=== PATIENT | female | born 1940 | race Caucasian/White ===

== ENCOUNTER 2016-12-06 05:42 | Emergency (ER) | payer MEDICARE ==
[2016-05-27 14:42] VITALS: BMI 29.3
[~2016-12-06 05:42] MED LIST: AMBIEN5 MG PO; CARAFATE1 G PO; CIPRO250 MG PO; DILAUDID2 MG PO; ELECTROLYTE MISC; FERROUS SULFAT325 MG PO; FUROSEMIDE10 MG/M1 IV; GABAPENTIN100 MG PO; GLIPIZIDE10 MG PO; GLUCOPHAGE500 MG PO; HUMALOG 30100 UNITS/ SC; HUMULIN R100 U/ML SC; HYDROCHLOROTHIA25 MG GT; HYDROCODONE-APA1 TAB PO; IPRAT-ALBUT 0.5-3 ML UPD; KLOR-CON M2020 MEQ PO; LANTUS SOL100 UNIT/1; LEVAQUIN 5500 MG/100 IV; LEVEMIR100 U/M1 SC; LEVSIN/ANASP0.125 MG PO; LEXAPRO20 MG PO; LISINOPRIL5 MG PO; LOVENOX40 MG/0.4 SC; MACROBID100 MG PO; METOPROLOL TART50 MG PO; MIRALAX17 GM PO; MUCINEX D1 TAB.SR . PO; MUCINEX600 MG PO; NORCO 7.5/325 T1 TA1 PO; NOVOLOG100 U/M1; PHENERGAN25 M1 PO; PLAVIX75 MG PO; PRILOSEC10 MG PO; PROAIR HFA8.5 GM INH; PROBENECID500 MG PO; SEROQUEL300 MG PO; SINEMET 25-1001 EACH PO; SYNTHROID50 MCG PO; TOPAMAX50 MG PO; TYLENOL W/CODEI1 TAB PO; VALIUM 2 MG TAB2 MG PO; VALIUM10 MG; VALIUM10 MG PO; ZANAFLEX2 M1 PO; ZOFRAN4 MG PO; ZOLOFT50 MG PO; ZOSYN 3.3753.375 G1 IV
[2016-12-06 06:47] LABS: BASOPHILS 0.1 % (0-2); EOSINOPHILS 2.3 % (0-7); HEMATOCRIT 40.9 % (36.0-48.0); HEMOGLOBIN 13.1 g/dL (12-16); IMMATURE GRANULOCYTES 0.1 % (0-5); LYMPHOCYTES 39.9 % (15-50); MCV 90.5 fL (80.0-100.0); MEAN PLATELET VOLUME 10.5 fL (7.4-10.4); MONOCYTES 7.3 % (2-11); NEUTROPHILS 50.3 % (40-80); RBC 4.52 10x6/uL (4.00-5.40); RDW 15.3 % (11.5-14.5)
[2016-12-06 06:54] LABS: PLATELET COUNT 140 10x3/uL (130-400)
[2016-12-06 06:56] LABS: APPEARANCE CLOUDY (CLEAR); BILIRUBIN NEGATIVE (NEGATIVE); COLOR YELLOW (YELLOW); GLUCOSE NEGATIVE (NEGATIVE); KETONE NEGATIVE (NEGATIVE); LEUKOCYTE ESTERASE 1+ (NEGATIVE); NITRITE POSITIVE (NEGATIVE); PROTEIN TRACE mg/dL (NEGATIVE); UROBILINOGEN NORMAL (NORMAL)
[2016-12-06 06:58] LABS: BACTERIA MANY /hpf (NONE SEEN); MUCUS >1+ /lpf (NONE SEEN); RED CELLS - URINE 0-5 /hpf (0-5); WHITE CELLS - URINE >50 /hpf (0-5)
[2016-12-06 07:38] LABS: ALBUMIN 3.1 g/dL (3.4-5.0); ALKALINE PHOSPHATASE 79 U/L (46-116); ALT (SGPT) 13 U/L (10-68); CALC OSMOLALITY 286 mosm/kg (275-300); CALCIUM 8.4 mg/dL (8.5-10.1); CARBON DIOXIDE 24.1 mmol/L (21.0-32.0); CHLORIDE - SERUM 110 mmol/L (98-107); CREATININE - SERUM 0.8 mg/dL (0.6-1.3); GLUCOSE 113 mg/dL (74-106); POTASSIUM - SERUM 3.6 mmol/L (3.5-5.1); PROTEIN - SERUM 6.6 g/dL (6.4-8.2); SODIUM 143 mmol/L (136-145); UREA NITROGEN 15 mg/dL (7-18); eGFR NON AFRICAN AMERICAN 74 mL/min (90-120)
[2016-12-06 07:45] LABS: CREATINE KINASE 23 UL (21-215); MAGNESIUM - SERUM 1.9 mg/dL (1.8-2.4); PRO BNP 68 pg/mL (0-450); TROPONIN-I < 0.017 ng/mL (0.000-0.060)
== END 2016-12-06 09:50 | disposition home or self-care (01) ==
LOC: D.ER 05:42
PROVIDERS: Emergency Medicine
DX: R55 Syncope and collapse (principal); N39.0 Urinary tract infection, site not specified; E11.9 Type 2 diabetes mellitus without complications

== ENCOUNTER 2017-01-06 09:54 | Inpatient (IN) | payer MEDICARE ==
[~2017-01-06] VITALS: Ht 167.6 cm; Wt 74.8 kg
[2017-01-06 13:32] LABS: BASOPHILS 0.1 % (0-2); EOSINOPHILS 1.2 % (0-7); HEMATOCRIT 42.6 % (36.0-48.0); HEMOGLOBIN 13.8 g/dL (12-16); IMMATURE GRANULOCYTES 0.1 % (0-5); LYMPHOCYTES 36.8 % (15-50); MCH 29.6 pg (26.0-34.0); MCHC 32.4 g/dL (31.0-37.0); MCV 91.2 fL (80.0-100.0); MEAN PLATELET VOLUME 10.5 fL (7.4-10.4); MONOCYTES 8.1 % (2-11); NEUTROPHILS 53.7 % (40-80); PLATELET COUNT 128 10x3/uL (130-400); RBC 4.67 10x6/uL (4.00-5.40); RDW 15.1 % (11.5-14.5); WBC 7.3 10x3/uL (4.8-10.8)
[2017-01-06 13:43] LABS: APPEARANCE CLOUDY (CLEAR); COLOR YELLOW (YELLOW)
[2017-01-06 13:44] LABS: BILIRUBIN NEGATIVE (NEGATIVE); GLUCOSE NEGATIVE (NEGATIVE); KETONE NEGATIVE (NEGATIVE); LEUKOCYTE ESTERASE 2+ (NEGATIVE); NITRITE POSITIVE (NEGATIVE); PROTEIN TRACE mg/dL (NEGATIVE); UROBILINOGEN NORMAL (NORMAL)
[2017-01-06 13:46] LABS: INR 1.08 (0.85-1.17); PROTIME 13.9 SECONDS (11.6-15.0)
[2017-01-06 13:46] LABS: WHITE CELLS - URINE >50 /hpf (0-5)
[2017-01-06 13:47] LABS: EPITHELIAL CELLS 0-5 /hpf (0-5); RED CELLS - URINE RARE /hpf (0-5)
[2017-01-06 13:48] LABS: BACTERIA MANY /hpf (NONE SEEN)
[2017-01-06 14:02] LABS: ALBUMIN 3.2 g/dL (3.4-5.0); ALKALINE PHOSPHATASE 71 U/L (46-116); ALT (SGPT) 15 U/L (10-68); BILIRUBIN - TOTAL 0.27 mg/dL (0.2-1.3); CALC OSMOLALITY 291 mosm/kg (275-300); CALCIUM 8.8 mg/dL (8.5-10.1); CARBON DIOXIDE 26.1 mmol/L (21.0-32.0); CHLORIDE - SERUM 113 mmol/L (98-107); GLUCOSE 105 mg/dL (74-106); POTASSIUM - SERUM 4.5 mmol/L (3.5-5.1); PROTEIN - SERUM 6.9 g/dL (6.4-8.2); SODIUM 147 mmol/L (136-145); UREA NITROGEN 13 mg/dL (7-18); eGFR NON AFRICAN AMERICAN 57 mL/min (90-120)
[2017-01-06 14:08] LABS: MAGNESIUM - SERUM 2.2 mg/dL (1.8-2.4); PRO BNP 185 pg/mL (0-450)
[2017-01-06 14:10] LABS: TROPONIN-I < 0.017 ng/mL (0.000-0.060)
[2017-01-06 18:16] VITALS: BP 129/60; BMI 26.7
[2017-01-06 20:00] VITALS: BP 164/85
--- NOTE | 2017-01-06 20:00 | NUR ---
ASSESSMENT PER FLOW SHEET. IV PATENT LEFT AC OF NS AT 100CC'S/HR SITE CLEAR. TELM. SHOWS SR WITH HR 82. BED ALARM BED ACTIVATED. SR UP X2 CALL LIGHT WITHIN REACH. DOOR OPEN. YELLOW BAND ON PATIENT AND YELLOW LABEL ON DOOR. SCD'S ON BLUE SOCKS ON.
--- NOTE | 2017-01-06 21:30 | NUR ---
MEDS GIVEN PER AUG. HOB UP 30 DEGREES. CALL LIGHT WITHIN REACH.
--- NOTE | 2017-01-06 22:00 | NUR ---
VOIDED ON BEDPAN. BRIEF PUT BACK ON.
[2017-01-07] VITALS: BP 176/78
--- NOTE | 2017-01-07 | NUR ---
MEDS GIVEN PER MAR. PT PULLS OFF BLUE SOCKS AND TAKES OFF SCD'S STATES THEY ARE TOO HOT.
--- NOTE | 2017-01-07 01:00 | NUR ---
EYES CLOSED RESPIRATIONS WITH EASE AND UNLABORED.
--- NOTE | 2017-01-07 03:03 | NUR ---
AWAKE PLACED ON BEDPAN VOIDS WELL. CALL LIGHT WITHIN REACH.
[2017-01-07 04:00] VITALS: BP 144/65
--- NOTE | 2017-01-07 04:24 | NUR ---
EYES CLOSED RESPIRATIONS WITH EASE AND UNLABORED.
--- NOTE | 2017-01-07 06:41 | NUR ---
AWAKE TALKING ON HER PHONE IN ROOM.
--- NOTE | 2017-01-07 07:35 | NUR ---
PATIENT IS AWAKE AND ALERT, SHE STATES THAT SHE HAS BEEN CRYING ALL NIGHT DUE TO THE PAIN IN HER LEGS AND BACK. SHE SAYS THAT HER DOCTOR HAD JUST BEEN IN AND ORDERED HER SOME PAIN MEDICATION. NORCO AND ATIVAN GIVEN. AT THE BEDSIDE. REVIEWED HER MEDICATION LIST. UPDATED THE BEST WE COULD FROM HIS MEMORY. HE STATED THAT SHE NO LONGER TAKES CARAFATE. ADDED SOME MEDICATIONS. HE IS GOING TO BRING HER MEDICATIONS UP LATER TODAY FOR REVIEW HE DID WHEN SHE CVAME IN TO THE ER.
[2017-01-07] MEDS ORDERED: HYDROCODONE-APA1 TAB PO (07:42)
[2017-01-07] MEDS ORDERED: AMBIEN10 MG PO (07:44)
[2017-01-07] MEDS ORDERED: PEPCID40 MG PO (07:45)
[2017-01-07] MEDS ORDERED: ZANAFLEX2 M1 PO (07:47)
[2017-01-07] MEDS ORDERED: KLOR-CON 1010 MEQ PO (07:47)
[2017-01-07] MEDS ORDERED: LISINOPRIL2.5 MG PO (07:48)
--- NOTE | 2017-01-07 08:26 | NUR ---
Patient Name: YUDELKA QURESHI Admission Status: ER Accout number: [id number] Admission Date: 01-06-2017 : 1941 Admission Diagnosis: Attending: YOLY Current LOS: 1 Anticipated DC Date: 01-09-2017 Planned Disposition: Home with Home Health Primary Insurance: MEDICARE A & B Discharge Planning Comments: CM MET WITH PATIENT AND FAMILY (SPOUSE-PAMELA), AND (DAUGHTER). SPOUSE STATED HE WOULD DRIVE PATIENT HOME AT DISCHARGE. THERE ARE 3 STEPS W/RAILS TO ENTER HOME AND NO STAIRS INSIDE. PATIENTS SPOUSE HELPS HER WITH BATH, DRESSING, AND MEDS. PATIENT HAS A WALKER, BS COMMODE, HANDICAP SHOWER, CANE, AND OXYGEN PRN AT . PATIENT HAS HELP FROM A NEW COMPANY IN [place] (FAMILY COULD NOT REMEMBER NAME) 3X A WEEK FOR 1 HOUR (FAMILY STATED SHOULD BE 4 HRS A DAY). PATIENTS PCP IS DR. BATES IN [place] AND PHARMACY IS [facility] IN [place]. PATIENT AGREED TO HOME HEALTH AND SPOUSE SIGNED THE [facility] FORM WITH [facility]. CM WILL CONTINUE TO FOLLOW PATIENT WITH D/C NEEDS AND PLANS. PCP DR. BATES ([place]) [facility] ([facility]) [phone] PAMELA (SPOUSE) [phone] OR [phone] Local Area Network Systems Adminstrator: Concha Yanez Is the patient Alert and Oriented? Yes 0 * How many steps to enter\exit or inside your home? 3 /RAILS 0 * PCP DR. BATES IN [place] 0 * Pharmacy [facility] 0 * Preadmission Environment Home with Family 0 * ADLs Partial Dependent 0 * Partial ADLs (Assistance needed) Bathing Dressing Medication Management 0 * Equipment Bedside Commode Cane Oxygen Walker 0 * Other Equipment HANDICAP SHOWER 0 * List name and contact numbers for known caregivers / representatives who currently or will assist patient after discharge: PAMELA (SPOUSE) [phone] 0 * Community resources currently utilized Other 0 * Please name any agencies selected above. SERVICE IN [place] [facility] HELP 3 DAYS A WEEK FOR 1HR DAY (SHOULD BE 4) 0 * Additional services required to return to the preadmission environment? Yes 0 * Can the patient safely return to the preadmission environment? Yes 0 * Has this patient been hospitalized within the prior 30 days at any hospital? No 0 Grand Total: 0
[2017-01-07 09:05] VITALS: BP 182/91
[2017-01-07 11:37] VITALS: BP 161/81
--- NOTE | 2017-01-07 12:31 | NUR ---
PATIENT SITTING UP IN HER BED EATING HER LUNCH. DENIES NEEDS, STATES THAT SHE SLEPT WELL THIS MORNING.
--- NOTE | 2017-01-07 12:45 | NUR ---
NEW ORDERS RECEIVED. PATIENT ABLE TO TALK MORE CLEARLY AND STATES THAT SHE CAN SWALLOW. HER ARMS CONTINUE TO TREMOR. SHE STATES THAT [facility] IS COMING FOR HER WITH HER MOMMA AND SON.
--- NOTE | 2017-01-07 13:00 | NUR ---
PATIENT'S MOVEMENTS HAVE RELAXED AND THE PATIENT IS GAZING AT THE CEILING TALKING ABOUT HOW BEAUTIFUL "IT" IS. SHE STATES MATIAS CHOUDHURY, HER MOTHER AND SON ARE COMING FOR HER. SHE REPEATS "ITS BEAUTIFUL" OVER AND OVER. HER DAUGHTER ARRIVES AND IS ABLE TO ATTRACT THE PATIENT'S ATTENTION. SHE TELLS HER DAUGHTER THAT LACIE IS BEAUTIFUL. THE PATIENT'S GETS HERE AND STATES THAT THE PATIENT WANTS TO , IS TIRED OF LIVING THIS WAY. ASKS IF SHE CAN HAVE A VALIUM OR ATIVAN. INFORMED THAT SHE HAS HAD AN ATIVAN. HE STATES THAT THIS IS WHAT HELPED HER YESTERDAY. I REVIEWED HER CHART AND FOUND THAT SHE WAS GIVEN 1MG ATIVAN IV IN THE ER FOR THESE SYMPTOMS AND WAS ACTUALLY GIVEN SOME VERSED IN THE AMBULANCE FOR "POSSIBLE SEIZURE"
[2017-01-07 13:23] VITALS: Ht 167.6 cm; Wt 74.8 kg
--- NOTE | 2017-01-07 13:35 | NUR ---
UPON RETURNING FROM LUNCH, I ENTERED HER ROOM TO FIND ANOTHER NURSE AND A CAN HOLDING THE PATIENT'S HANDS WHILE SHE IS HAVING TREMORS THAT ARE TONIC AND CLONIC IN NATURE, HER LEGS ARE FULLY EXTENDED AND SHE IS HAVING DIFFICULTY TALKING BUT WAS ABLE TO SAY GEE. SHE IS ABLE TO DIRECT HER GAZE. CALL PLACED TO DR. VICK'S OFFICE.
--- NOTE | 2017-01-07 19:10 | NUR ---
PT LYING IN BED, SMILING, VERY TALKATIVE, VERBALIZED 1 BM TODAY AND WAS DIARRHEA, BED IN LOW POSITION, CALL LIGHT WITH IN REACH NO NEEDS AT THIS TIME
[2017-01-07 20:00] VITALS: BP 140/64
--- NOTE | 2017-01-07 21:00 | NUR ---
PT IS LYING IN BED ON BACK WATCHING NEWS, NO OTHER NEEDS AT THIS TIME, BED IN LOW POSITION, CALL LIGHT WITHIN REACH
[2017-01-08] VITALS: BP 132/61
--- NOTE | 2017-01-08 00:08 | NUR ---
PT IS LYING ON LT SIDE, EVEN RISE AND FALL OF CHEST, NO SIGNS OF DISTRESS, CONTINUE W/ CARE PLAN. CALL LIGHT WITHIN REACH
--- NOTE | 2017-01-08 00:39 | NUR ---
EYES CLOSED RESPIRATIONS WITH EASE AND UNLABORED.
[2017-01-08 04:00] VITALS: BP 142/80
[2017-01-08 05:09] LABS: BASOPHILS 0.1 % (0-2); HEMATOCRIT 42.5 % (36.0-48.0); HEMOGLOBIN 13.9 g/dL (12-16); IMMATURE GRANULOCYTES 0.2 % (0-5); LYMPHOCYTES 42.7 % (15-50); MCH 29.3 pg (26.0-34.0); MCHC 32.7 g/dL (31.0-37.0); MCV 89.7 fL (80.0-100.0); MEAN PLATELET VOLUME 10.6 fL (7.4-10.4); MONOCYTES 7.2 % (2-11); NEUTROPHILS 47.8 % (40-80); PLATELET COUNT 145 10x3/uL (130-400); RBC 4.74 10x6/uL (4.00-5.40); RDW 14.8 % (11.5-14.5); WBC 8.6 10x3/uL (4.8-10.8)
[2017-01-08 05:29] LABS: HEMOGLOBIN A1C 5.8 % (4.8-6.0)
[2017-01-08 05:34] LABS: BILIRUBIN - TOTAL 0.37 mg/dL (0.2-1.3); CALCIUM 8.4 mg/dL (8.5-10.1); CARBON DIOXIDE 24.1 mmol/L (21.0-32.0); MAGNESIUM - SERUM 1.7 mg/dL (1.8-2.4); PHOSPHOROUS 3.4 mg/dL (2.5-4.9); PROTEIN - SERUM 7.1 g/dL (6.4-8.2); T4 THYROXIN - FREE 0.79 ng/dL (0.76-1.46); THYROID STIMULATING HORMONE 2.13 uIU/mL (0.36-3.74)
[2017-01-08 05:37] LABS: ANION GAP 11.4 mmol/L (8-16); POTASSIUM - SERUM 3.5 mmol/L (3.5-5.1)
--- NOTE | 2017-01-08 07:45 | NUR ---
REPORT RCEIVED FROM AFIA MOSHER. DAUGHTER AT BEDSIDE. CALL LIGHT IN REACH.
[2017-01-08 08:10] VITALS: BP 160/72
--- NOTE | 2017-01-08 09:10 | NUR ---
ASSESSMENT COMPLETED. BED ALARM ON. ON LOVENOX. CALL LIGHT IN REACH. WILL CONTINUE WITH PLAN OF CARE.
--- NOTE | 2017-01-08 09:40 | NUR ---
PT SITTING UP IN BED WITH NO VISABLE SIGNS OF PAIN OR DISCOMFORT. BED IN LOW POSITION AND FAMILY AT BEDSIDE. CALL LIGHT WITHIN REACH, SIDE RAILS UP X2. WILL CONTINUE TO MONITOR.
--- NOTE | 2017-01-08 11:56 | NUR ---
VALERIE PO WITH AM MEDS ADMINISTERED. CALL LIGHT IN REACH.
--- NOTE | 2017-01-08 12:00 | NUR ---
VALERIE PO WITH AM MEDS ADMINISTERED. CALL LIGHT IN REACH.
[2017-01-08 12:51] VITALS: BP 153/72
--- NOTE | 2017-01-08 14:25 | NUR ---
HEART MONITOR ELECTRODES CHANGED. NO NEEDS VOICED. FAMILY AT BEDSIDE. CALL LIGHT IN RECH.
[2017-01-08 16:30] VITALS: BP 129/62
--- NOTE | 2017-01-08 16:50 | NUR ---
FAMIY IN ROOM. DENIES NEED AT THIS TIME. CALL LIGHT IN REACH.
--- NOTE | 2017-01-08 18:53 | NUR ---
AFTERNOON AND EVENING MEDS ADMINISTERED WITH NORCO. STILL REFUSES SCDs. BED ALARM ON. CALL LIGHT IN REACH. WILL CONTINUE WITH PLAN OF CARE.
--- NOTE | 2017-01-08 19:00 | NUR ---
BEDSIDER REPORT RECEIVED AND CARE OF PT ASSUMED. PT LYING IN SEMI MINER'S POSITION VISITING WITH FAMILY MEMBERS. IV IN LEFT AC PATENT WITH 1/2 NS INFUSING AT 50 ML / HR. TELEMETRY IN USE AND READING SR AT THIS ASSESSMENT. WILL MONITOR CLOSELY FOR NEEDS. CALL LIGHT WITHIN REACH.
[2017-01-08 20:00] VITALS: BP 147/70
--- NOTE | 2017-01-08 21:20 | NUR ---
HS MEDICATIONS GIVEN. WILL CONTINUE TO MONITOR FOR NEEDS.
--- NOTE | 2017-01-08 21:25 | NUR ---
HS SNACK OF PHIL CRACKERS AND MILK GIVEN, PER DIET. WILL CONTINUE TO MONITOR FOR NEEDS.
--- NOTE | 2017-01-09 01:15 | NUR ---
ASSISTED PT UP TO USE BSC TO HAVE BM. POSITIONED BACK IN BED FOR COMFORT.
--- NOTE | 2017-01-09 03:46 | NUR ---
PT RESTING QUIETLY AT THIS TIME WITH EYES CLOSED AND UNLABORED BREATHING.
[2017-01-09 04:00] VITALS: BP 145/72
[2017-01-09 05:15] LABS: BASOPHILS 0.2 % (0-2); EOSINOPHILS 2.3 % (0-7); HEMATOCRIT 42.6 % (36.0-48.0); IMMATURE GRANULOCYTES 0.4 % (0-5); LYMPHOCYTES 41.8 % (15-50); MCH 29.3 pg (26.0-34.0); MCHC 32.9 g/dL (31.0-37.0); MCV 89.1 fL (80.0-100.0); MEAN PLATELET VOLUME 10.4 fL (7.4-10.4); MONOCYTES 7.2 % (2-11); NEUTROPHILS 48.1 % (40-80); PLATELET COUNT 165 10x3/uL (130-400); RBC 4.78 10x6/uL (4.00-5.40); RDW 14.8 % (11.5-14.5); WBC 8.3 10x3/uL (4.8-10.8)
[2017-01-09 05:32] LABS: ANION GAP 14.5 mmol/L (8-16); CALCIUM 8.8 mg/dL (8.5-10.1); CARBON DIOXIDE 24.2 mmol/L (21.0-32.0); CREATININE - SERUM 0.8 mg/dL (0.6-1.3); POTASSIUM - SERUM 3.7 mmol/L (3.5-5.1)
[2017-01-09] MEDS ORDERED: LOPRESSOR25 MG PO (07:13)
[2017-01-09] MEDS ORDERED: MACROBID100 MG PO (07:14)
[2017-01-09] MEDS ORDERED: MYSOLINE 50 MG50 MG PO (07:14)
--- NOTE | 2017-01-09 07:45 | NUR ---
RECIEVED ON WALKING ROUNDS REPORT OBTAINED FROM OFFGOING SHIFT AND CARE ASSUMED PT WITH ORDERS FOR DISCAHRGE TO HOME AT THIS TIME. WILL DISCHARGE PT ACCORDING TO ORDERS WITH ALL FOLLOW UP APPOINTMENTS
[2017-01-09 08:25] VITALS: BP 148/89
--- NOTE | 2017-01-09 09:46 | NUR ---
CM REASSESSMENT NOTE: PATIENT IS DISCHARGING HOME TODAY WITH [facility] (REFUSED IP RE[facility]). SPOUSE IS DRIVING HER. PATIENTS PCP IN [place] WILL BE FOLLOWING HER W/HOME HEALTH. PATIENT HAS DME AT HOME.
--- NOTE | 2017-01-09 10:10 | NUR ---
PT ASLEEP IN BED WITH NO VISABLE SIGNS OF PAIN OR DISCOMFORT AT THIS TIME. BED IN LOW POSITION AND CALL LIGHT WITHIN REACH. WILL CONTINUE TO MONITOR.
--- NOTE | 2017-01-09 11:15 | NUR ---
PT AND SPOUSE GIVEN DISCHARGE INSTRUCTIONS AND EXPRESSED UNDERSTANDING OF FOLLOW UP APPOINTMENTS. PIV DISCONTINUED WITHOUT DIFFICULTY. LEFT VIA WHEELCHAIR WITH SPOUSE AND VOULENTEER STAFF.
== END 2017-01-09 12:00 | disposition home health service (06) | DRG 315 ==
LOC: D.ER 09:54 → D.MS 16:21
PROVIDERS: Emergency Medicine; ADMIT Family Medicine
DX: I95.9 Hypotension, unspecified (principal); N39.0 Urinary tract infection, site not specified; K21.9 Gastro-esophageal reflux disease without esophagitis; G20 Parkinson's disease; E11.40 Type 2 diabetes mellitus with diabetic neuropathy, unspecified; Z79.84 Long term (current) use of oral hypoglycemic drugs; I10 Essential (primary) hypertension; B96.20 Unspecified Escherichia coli [E. coli] as the cause of diseases classified elsewhere

== ENCOUNTER 2017-02-17 08:36 | Day surgery (SDC) | payer MEDICARE ==
[~2017-02-17] VITALS: Ht 167.6 cm; Wt 79.5 kg
[~2017-02-17 08:36] MED LIST changes: +AMBIEN10 MG PO; +KLOR-CON 1010 MEQ PO; +LISINOPRIL2.5 MG PO; +LOPRESSOR25 MG PO; +MYSOLINE 50 MG50 MG PO; +PEPCID40 MG PO
[2017-02-17 09:49] VITALS: BP 131/71; Ht 167.6 cm; Wt 79.5 kg
[2017-02-17 09:51] LABS: HEMATOCRIT 43.2 % (36.0-48.0); HEMOGLOBIN 14.5 g/dL (12-16); MCH 29.7 pg (26.0-34.0); MCHC 33.6 g/dL (31.0-37.0); MCV 88.5 fL (80.0-100.0); MEAN PLATELET VOLUME 10.1 fL (7.4-10.4); RBC 4.88 10x6/uL (4.00-5.40); RDW 14.7 % (11.5-14.5); WBC 8.5 10x3/uL (4.8-10.8)
[2017-02-17 10:01] LABS: APTT 30.9 SECONDS (22.8-39.4); INR 1.11 (0.85-1.17); PROTIME 14.2 SECONDS (11.6-15.0)
[2017-02-17 10:38] LABS: ANION GAP 13.5 mmol/L (8-16); CALCIUM 8.8 mg/dL (8.5-10.1); CARBON DIOXIDE 24.4 mmol/L (21.0-32.0); CREATININE - SERUM 0.9 mg/dL (0.6-1.3); POTASSIUM - SERUM 3.9 mmol/L (3.5-5.1)
--- NOTE | 2017-02-18 07:48 | OP ---
PATIENT NAME: YUDELKA QURESHI MEDICAL RECORD: [id number] :41 LOCATION:[facility] ADMISSION DATE: SURGEON: MARÍA ENRIQUEZ DO DATE OF OPERATION: 02/17/2017 PROCEDURE: Colonoscopy with polypectomy. INDICATIONS FOR PROCEDURE: History of malignant tumor of the colon, diagnosed states, 3 adenocarcinoma in October 2014, status post sigmoid colectomy and right hemicolectomy. This is a surveillance endoscopy with the last colonoscopy being in November 2015 with polyps visualized on that exam. SCOPE: ITDatabase video pediatric colonoscope. MEDICATIONS: Propofol IV per anesthesia. ESTIMATED BLOOD LOSS: Minimal. COMPLICATIONS: None. FINDINGS: Informed consent was given. The patient was made comfortable with the above medication. After reaching an adequate level of sedation by slow IV push, the patient was placed on his left side. A digital rectal examination was performed and revealed an external skin tag from hemorrhoids. The endoscope was then advanced under direct visualization through the rectum to the anastomosis from the right hemicolectomy. The scope was slowly withdrawn and mucosa was carefully examined. Prep was good. On this examination, there were two anastomosis. The first was in the, now, proximal into the colon, which is an ileocolonic anastomosis. This appeared healthy without any abnormalities. No biopsies were taken of this site. In the sigmoid anastomosis, there was some granulation tissue, which is likely benign. A single biopsy was taken to confirm this. There were multiple polyps visualized on this examination. There were 3 polyps located in the descending colon. These were benign-appearing and sessile and ranged in size from 3 to 4 mm in diameter. One was removed with a hot snare in 1 piece and completely retrieved. The other 2 were removed with hot forceps in 1 piece and completely retrieved. There was a single sigmoid polyp, which was benign and sessile, measuring approximately 3 mm in diameter, which was removed with a hot snare in 1 piece and completely retrieved. The final polyp was located in the rectum. It was benign appearing and sessile and measured approximately 3 mm in diameter. It was removed using hot snare in 1 piece and completely retrieved. Retroflexion was performed in the rectum with a normal appearing rectal wall. Scope was then withdrawn from the patient. The patient tolerated the procedure well and there were no complications. IMPRESSIONS: 1. Multiple polyps as described above, status post right hemicolectomy and sigmoidectomy for malignant tumor of the colon. 2. External hemorrhoids tag. PLAN AND RECOMMENDATIONS: 1. Discharge home when recovery parameters are met. 2. Follow up biopsy specimen results. 3. Continue current diet. 4. Continue current medications. 5. Recall colonoscopy in 1 year based on the fact that multiple polyps have OPERATIVE REPORT [id number] KIERAYUDELKA MEYERS accumulated in 1 years' time with a history of colon cancer. After that endoscopy, this interval may be widened out if there are no polyps or just a couple benign-appearing polyps. TRANSINT:[id number] Voice Confirmation ID: [id number] DOCUMENT ID: [id number] MARÍA ENRIQUEZ DO at 0748 CC: [id number] DICTATION DATE: 02/17/17 1328 PIN TICKET MACHINE OPERATOR: 02/17/17 1522 [facility] 02/17/17 [place] [id number] [place] [address]
== END 2017-02-17 14:45 | disposition home or self-care (01) ==
LOC: D.OPS 08:36
PROVIDERS: Anesthesiology; Internal Medicine Gastroenterology
DX: Z12.11 Encounter for screening for malignant neoplasm of colon (principal); K63.5 Polyp of colon; K62.1 Rectal polyp; D12.5 Benign neoplasm of sigmoid colon; K64.4 Residual hemorrhoidal skin tags; Z85.038 Personal history of other malignant neoplasm of large intestine; Z90.49 Acquired absence of other specified parts of digestive tract; Z01.812 Encounter for preprocedural laboratory examination

== ENCOUNTER 2017-04-21 06:33 | Day surgery (SDC) | payer MEDICARE ==
[2017-04-21] MEDS ORDERED: K-DUR20 MEQ PO (07:00)
[2017-04-21] MEDS ORDERED: ZOLOFT50 MG PO (07:01)
[2017-04-21] MEDS ORDERED: TOPAMAX100 MG PO (07:01)
[2017-04-21] MEDS ORDERED: CELEXA10 MG PO (07:02)
[2017-04-21 07:07] VITALS: BP 138/73; BMI 28.1
[2017-04-21 07:10] LABS: HEMATOCRIT 44.4 % (36.0-48.0); HEMOGLOBIN 14.9 g/dL (12-16); MCH 30.2 pg (26.0-34.0); MCHC 33.6 g/dL (31.0-37.0); MCV 90.1 fL (80.0-100.0); MEAN PLATELET VOLUME 10.6 fL (7.4-10.4); RBC 4.93 10x6/uL (4.00-5.40); RDW 14.9 % (11.5-14.5)
[2017-04-21 07:27] LABS: ANION GAP 11.3 mmol/L (8-16); CALCIUM 9.4 mg/dL (8.5-10.1); CARBON DIOXIDE 25.9 mmol/L (21.0-32.0); CREATININE - SERUM 0.8 mg/dL (0.6-1.3); POTASSIUM - SERUM 4.2 mmol/L (3.5-5.1)
--- NOTE | 2017-04-21 09:05 | NUR ---
0900 DISCHARGE INSTRUCTIONS COMPLETE. PT HAS NO QUESTIONS OR CONCERNS AT THIS TIME. PRESCRIPTION FOR OMPRAZOLE GIVEN. PT ESCORTED OUT BY VOLUNTEER.
--- NOTE | 2017-04-22 09:09 | OP ---
PATIENT NAME: YUDELKA QURESHI MEDICAL RECORD: [id number] :41 LOCATION:[facility] ADMISSION DATE: SURGEON: MARÍA ENRIQUEZ DO DATE OF OPERATION: 04/21/2017 PROCEDURE: EGD with biopsies. INDICATIONS FOR PROCEDURE: Heartburn and epigastric pain. SCOPE: Olympus video gastroscope. MEDICATIONS: Propofol 150 mg IV per anesthesia. ESTIMATED BLOOD LOSS: Minimal. COMPLICATIONS: None. FINDINGS: Informed consent was given. The patient was made comfortable with the above medication. After reaching an adequate level of sedation by slow IV push, the patient was placed on her left side. The endoscope was then advanced under direct visualization through the mouth to the second portion of the duodenum. The whole examined esophagus appeared normal. At the GE junction, there was mild LA class A reflux-induced esophagitis characterized by minor breaks in the Z line. There were no ulcers or significant erosions. The endoscope was advanced beyond the GE junction into the stomach and retroflexed to view the cardia, where a small sliding hiatal hernia was present. The fundus appeared normal. Throughout the body of the stomach, the antrum and prepyloric region, there was some congestion and patchy erythema and granularity consistent with possible gastritis. Random biopsies were taken to submit for histology and to rule out H. pylori. The endoscope was advanced beyond the pylorus into the duodenum where the bulb and second portion of the duodenum appeared normal. The endoscope was then withdrawn from the patient. The patient tolerated the procedure well, there were no complications. IMPRESSION: 1. LA class A reflux-induced esophagitis, which is mild. 2. Small sliding hiatal hernia. 3. Patchy erythema and granularity, as well as congestion consistent with gastritis, biopsies pending. PLAN AND RECOMMENDATIONS: 1. Discharge home when recovery parameters are met. 2. Follow up biopsy specimen results and treat for H. pylori if indicated based on those biopsy results. 3. I do not see any benefit to changing the patient's medications from omeprazole 40 mg in the a.m. and famotidine 20-40 mg p.o. at bedtime. 4. The patient may benefit from antireflux surgery as her symptoms are worsened with lying flat and after eating, which is consistent with transient lower esophageal sphincter relaxations and uncontrolled reflux. I will discuss this with the patient and we will make a referral to surgery if the patient wished to explore those options. 5. The patient does experience significant bloating. Nausea and vomiting do not seem to be a predominant feature, but if this increases, may consider a OPERATIVE REPORT [id number] YUDELKA QURESHI gastric emptying study as she does have a history of diabetes. TRANSINT:[id number] Voice Confirmation ID: [id number] DOCUMENT ID: [id number] MARÍA ENRIQUEZ DO at 0909 CC: [id number] DICTATION DATE: 04/21/17805 FIREWALL SECURITY ENGINEER: 04/21/17 0844 [facility] 04/21/17 [facility] [address] [place] [address]
== END 2017-04-21 09:04 | disposition home or self-care (01) ==
LOC: D.OPS 06:33
PROVIDERS: Internal Medicine Gastroenterology
DX: R10.13 Epigastric pain (principal); K21.0 Gastro-esophageal reflux disease with esophagitis; K44.9 Diaphragmatic hernia without obstruction or gangrene; E11.9 Type 2 diabetes mellitus without complications; E03.9 Hypothyroidism, unspecified; Z01.812 Encounter for preprocedural laboratory examination

== ENCOUNTER 2017-08-15 18:13 | Emergency (ER) | payer MEDICARE | END 2017-08-16 00:54 | disposition home or self-care (01) | LOC: D.ER 18:13 | DX: K59.00 Constipation, unspecified (principal); K74.60 Unspecified cirrhosis of liver ==

== ENCOUNTER 2017-09-24 09:52 | Day surgery (SDC) | payer MEDICARE ==
[~2017-09-24] VITALS: Ht 167.6 cm; Wt 79.1 kg
--- NOTE | ~2017-09-24 | OP ---
PATIENT NAME: YUDELKA QURESHI MEDICAL RECORD: [id number] :41 LOCATION:[facility] ADMISSION DATE: SURGEON: MARÍA ENRIQUEZ DO DATE OF OPERATION: 09/24/2017 PROCEDURE: EGD with biopsies. INDICATIONS FOR PROCEDURE: Right upper quadrant and epigastric abdominal pain, nausea. SCOPE: Olympus video gastroscope. MEDICATIONS: Propofol 120 mg IV per anesthesia. ESTIMATED BLOOD LOSS: Minimal. COMPLICATIONS: None. FINDINGS: Informed consent was given. The patient was made comfortable with the above medication. After reaching an adequate level of sedation by slow IV push, the patient was placed on her left side. The endoscope was then advanced under direct visualization through the mouth to the fourth portion of the duodenum. The whole exam and esophagus appeared normal. At the GE junction, there was mild LA class A reflux-induced esophagitis. There were no ulcers or erosions present. The endoscope was advanced beyond the GE junction into the stomach and retroflexed to view the cardia, where a small sliding hiatal hernia was present. The fundus appeared normal. Throughout the body of the stomach, antrum, and prepyloric region, there was some congestion and patchy erythema and granularity consistent with possible gastritis. Random biopsies were taken to submit for histology and to rule out H. pylori. The endoscope was advanced beyond the pylorus into the duodenum where the entire exam and duodenum appeared normal. Multiple biopsies were taken in the duodenum with cold forceps to submit for histology. The endoscope was then withdrawn back into the esophagus where random biopsies were taken from the mid esophagus to submit for histology. The endoscope was withdrawn from the patient. The patient tolerated the procedure well and there were no complications. IMPRESSION: 1. LA class A reflux-induced esophagitis. 2. Small sliding hiatal hernia. 3. Possible gastritis with biopsies pending. PLAN AND RECOMMENDATIONS: 1. Discharge home when recovery parameters are met. 2. Follow up biopsy specimen results. 3. Continue current medications of omeprazole 40 mg in the a.m. and famotidine 20-40 mg at bedtime. 4. We will schedule a gastric emptying scan regarding her ongoing symptoms of abdominal pain, pain with eating, and bloating. 5. The patient may benefit from antireflux surgery. 6. Further recommendations will related after gastric emptying scan is completed. TRANSINT:[id number] Voice Confirmation ID: [id number] DOCUMENT ID: [id number] OPERATIVE REPORT [id number] YUDELKA QURESHI,MARÍA Gaxiola DO at 1135 CC: [id number] DICTATION DATE: 09/24/17 1303 DIRECTOR OF CHILD WELFARE SERVICES: 09/24/17 1333 [facility] 09/24/17 [place] [id number] [place] [id number]
[~2017-09-24 09:52] MED LIST changes: +CELEXA10 MG PO; +K-DUR20 MEQ PO; +TOPAMAX100 MG PO
[2017-09-24 10:33] VITALS: BP 120/64; Ht 167.6 cm; Wt 79.1 kg
[2017-09-24 11:28] LABS: BASOPHILS 0.1 % (0-2); EOSINOPHILS 1.9 % (0-7); HEMOGLOBIN 12.8 g/dL (12-16); IMMATURE GRANULOCYTES 0.4 % (0-5); LYMPHOCYTES 36.4 % (15-50); MCH 28.1 pg (26.0-34.0); MCV 87.7 fL (80.0-100.0); MEAN PLATELET VOLUME 10.4 fL (7.4-10.4); MONOCYTES 8.1 % (2-11); NEUTROPHILS 53.1 % (40-80); PLATELET COUNT 168 10x3/uL (130-400); RBC 4.56 10x6/uL (4.00-5.40); RDW 14.8 % (11.5-14.5); WBC 7.8 10x3/uL (4.8-10.8)
[2017-09-24 11:49] LABS: CALC OSMOLALITY 285 mosm/kg (275-300); CALCIUM 8.9 mg/dL (8.5-10.1); CARBON DIOXIDE 24.5 mmol/L (21.0-32.0); CHLORIDE - SERUM 108 mmol/L (98-107); CREATININE - SERUM 0.7 mg/dL (0.6-1.3); GLUCOSE 145 mg/dL (74-106); POTASSIUM - SERUM 4.2 mmol/L (3.5-5.1); SODIUM 141 mmol/L (136-145); UREA NITROGEN 19 mg/dL (7-18); eGFR NON AFRICAN AMERICAN 86 mL/min (90-120)
[2017-09-24 12:01] LABS: INR 1.11 (0.85-1.17); PROTIME 13.9 SECONDS (11.6-15.0)
[2017-09-24 12:02] LABS: APTT 30.2 SECONDS (22.8-39.4)
== END 2017-09-24 14:10 | disposition home or self-care (01) ==
LOC: D.OPS 09:52
PROVIDERS: Anesthesiology
DX: R10.11 Right upper quadrant pain (principal); R10.13 Epigastric pain; K21.0 Gastro-esophageal reflux disease with esophagitis; K44.9 Diaphragmatic hernia without obstruction or gangrene; I10 Essential (primary) hypertension; E11.9 Type 2 diabetes mellitus without complications; E03.9 Hypothyroidism, unspecified; Z01.812 Encounter for preprocedural laboratory examination

== ENCOUNTER 2018-02-25 08:46 | Day surgery (SDC) | payer MEDICARE ==
[~2018-02-25] VITALS: Ht 167.6 cm; Wt 81.8 kg
--- NOTE | ~2018-02-25 | OP ---
PATIENT NAME: YUDELKA QURESHI MEDICAL RECORD: [id number] :41 LOCATION:[facility] ADMISSION DATE: SURGEON: MARÍA ENRIQUEZ DO DATE OF OPERATION: 02/25/2018 PROCEDURE: Colonoscopy with polypectomy. INDICATIONS FOR PROCEDURE: Personal history of colon cancer and personal history of colon polyps. The patient was diagnosed with a colon cancer in October 2014. She is status post sigmoid colectomy and right hemicolectomy. Her last surveillance endoscopy was performed on 02/17/2017 with multiple polyps removed at that time. SCOPE: Vivorte video pediatric colonoscope. MEDICATIONS: Propofol 170 mg IV per anesthesia. ESTIMATED BLOOD LOSS: Minimal. COMPLICATIONS: None. FINDINGS: Informed consent was given. The patient was made comfortable with the above medication. After reaching an adequate level of sedation by slow IV push, the patient was placed on her left side. A digital rectal examination was performed and was normal other than the presence of external hemorrhoids. The endoscope was advanced under direct visualization through the rectum to the ileocolonic anastomosis. The endoscope was slowly withdrawn and the mucosa was carefully examined. Two anastomoses were encountered. The first was in the proximal colon, which was an ileocolonic anastomosis. This appeared normal. The second anastomosis was in the sigmoid region. There was some granulation tissue and suture visualized. A single biopsy was taken to confirm the presence of granulation tissue. There was a single polyp visualized on today's examination. This was a benign appearing sessile polyp located in the rectum. It was removed using hot forceps in 1 piece and completely retrieved. Retroflexion was performed in the rectum with visualization of internal hemorrhoids without bleeding. Scope was then withdrawn from the patient. The patient tolerated the procedure well and there were no complications. IMPRESSION: 1. A single rectal polyp removed using hot forceps. 2. Internal and external hemorrhoids without bleeding. PLAN AND RECOMMENDATIONS: 1. Discharge home when recovery parameters are met. 2. Follow up biopsy specimen results. 3. High fiber diet. 4. Continue current medications. 5. We will discuss with the patient whether or not she wants to repeat any colonoscopies. If she does not wish to have any further surveillance endoscopies, this is understandable. If she does wish to continue surveillance, I would recommend a repeat in 2 years' time. TRANSINT:[id number] Voice Confirmation ID: [id number] DOCUMENT ID: [id number] OPERATIVE REPORT [id number] YUDELKA QURESHI NATHAN A DO at 0721 CC: [id number] DICTATION DATE: 02/25/18 1056 VOIP NETWORK ENGINEER: 02/25/18 1112 [facility] 02/25/18 [place] [id number] [place] [id number]
[2018-02-25 09:03] LABS: HEMATOCRIT 42.7 % (36.0-48.0); HEMOGLOBIN 14.1 g/dL (12-16); MCH 28.5 pg (26.0-34.0); MCV 86.3 fL (80.0-100.0); MEAN PLATELET VOLUME 10.1 fL (7.4-10.4); RBC 4.95 10x6/uL (4.00-5.40); RDW 15.9 % (11.5-14.5); WBC 7.7 10x3/uL (4.8-10.8)
[2018-02-25 10:04] VITALS: BP 146/69; Ht 167.6 cm; Wt 81.8 kg
== END 2018-02-25 11:53 | disposition home or self-care (01) ==
LOC: D.OPS 08:46
PROVIDERS: Anesthesiology
DX: K62.1 Rectal polyp (principal); Z12.11 Encounter for screening for malignant neoplasm of colon; K64.8 Other hemorrhoids; K64.4 Residual hemorrhoidal skin tags; Z85.038 Personal history of other malignant neoplasm of large intestine; Z86.010 Personal history of colon polyps; Z90.49 Acquired absence of other specified parts of digestive tract; Z01.812 Encounter for preprocedural laboratory examination

== ENCOUNTER → 2019-06-07 08:48 | Outpatient (CLI) | payer MEDICARE ==
[2018-02-25 10:04] VITALS: BMI 29.1
== END | disposition home or self-care (01) ==
LOC: D.CT 08:48
PROVIDERS: ATTEND Surgery
DX: C18.9 Malignant neoplasm of colon, unspecified (principal); R10.9 Unspecified abdominal pain

== ENCOUNTER → 2020-12-14 05:52 | Outpatient (CLI) | payer MEDICARE ==
[2018-02-25 10:04] VITALS: BMI 29.1
== END | disposition home or self-care (01) ==
LOC: D.RAD 12-13 14:00
PROVIDERS: ATTEND Surgery
DX: R13.10 Dysphagia, unspecified (principal)

== ENCOUNTER → 2020-12-21 06:06 | Day surgery (SDC) | payer MEDICARE ==
[~2020-12-21] VITALS: Ht 167.6 cm; Wt 86.4 kg
--- NOTE | ~2020-12-21 | OP ---
PATIENT NAME: YUDELKA QURESHI MEDICAL RECORD: [id number] :41 LOCATION:[facility] ADMISSION DATE: SURGEON: BRIDGER BROWNING MD DATE OF OPERATION: 12/21/2020 PREOPERATIVE DIAGNOSES: 1. Dysphagia. 2. Hypertension. 3. Hypothyroidism. 4. History of transient ischemic attacks. 5. History of colon cancer. POSTOPERATIVE DIAGNOSES: 1. Dysphagia. 2. Hypertension. 3. Hypothyroidism. 4. History of transient ischemic attacks. 5. History of colon cancer. PROCEDURE: 1. EGD with biopsy. 2. Manometry catheter placement. SURGEON: Bridger Browning MD DESCRIPTION OF PROCEDURE: An Olympus endoscope was advanced through the mouth and esophagus. We easily passed through the stomach into the duodenum. As we pulled the scope back, we did not see any inflammatory changes, but there was a small polyp present near the first portion of the duodenum. This was biopsied, but not completely removed. As we pulled the scope back, we could see a lot of inflammatory changes with thickening of the rugae of the stomach. There were no signs of any ulcerations, masses or lesions through the stomach. A random biopsy was taken of the antrum. A retroflex view showed the patient had a small hiatal hernia and an open GE junction. As we pulled the scope back further, we could see the GE junction rested at about 38 cm from the teeth. A random biopsy was taken on the distal third of the esophagus. I saw no evidence of any esophagitis or ulcerations. The patient's esophagus appeared to be widely open and patent with no strictures. At this point, the scope was removed. A manometry catheter was then inserted through the patient's right naris, it advanced easily into the stomach and the scope was replaced showing that the manometry catheter proceeded through the esophagus and down past the GE junction into the stomach. At this point, the insufflation and the scope were removed. COMPLICATIONS: None. CONDITION: Stable. ANESTHESIA: TIVA. BLOOD LOSS: Minimal. TRANSINT:[id number] Voice Confirmation ID: [id number] DOCUMENT ID: [id number] OPERATIVE REPORT [id number] YUDELKA QURESHI BRIDGER BROWNING MD CC: SERA ZEE MD [id number] DICTATION DATE: 12/21/20820 STARCH AND PROSIZE MIXER: 12/21/20835 [facility] [address] [place] [address]
[~2020-12-21 06:06] MED LIST changes: +CONSTULOSE PO; +GLIPIZIDE5 MG PO; +OXYCONTIN10 MG PO
[2020-12-21 06:48] LABS: ANION GAP 12.1 mmol/L (8-16); CALCIUM 8.9 mg/dL (8.5-10.1); CARBON DIOXIDE 23.5 mmol/L (21.0-32.0); CREATININE - SERUM 0.8 mg/dL (0.6-1.3); POTASSIUM - SERUM 3.6 mmol/L (3.5-5.1)
[2020-12-21 06:56] LABS: BASOPHILS 0.6 % (0-2); EOSINOPHILS 2.6 % (0-7); HEMATOCRIT 37.9 % (36.0-48.0); HEMOGLOBIN 12.4 g/dL (12-16); LYMPHOCYTES 30.5 % (15-50); MCH 27.8 pg (26.0-34.0); MCHC 32.7 g/dL (31.0-37.0); MEAN PLATELET VOLUME 8.9 fL (7.4-10.4); MONOCYTES 7.9 % (2-11); NEUTROPHILS 58.4 % (40-80); PLATELET COUNT 182 10x3/uL (130-400); RBC 4.46 10x6/uL (4.00-5.40); RDW 16.4 % (11.5-14.5); WBC 7.2 10x3/uL (4.8-10.8)
[2020-12-21 07:03] VITALS: BP 145/69; Ht 167.6 cm; Wt 86.4 kg
--- NOTE | 2020-12-21 09:37 | NUR ---
0920-PT. ESCORTED VIA PERSONAL WHEELCHAIR TO CAR, LEFT WITH DRIVING.
== END | disposition home or self-care (01) ==
LOC: D.OPS 06:06
PROVIDERS: ATTEND Surgery
DX: R13.10 Dysphagia, unspecified (principal); I10 Essential (primary) hypertension; E03.9 Hypothyroidism, unspecified; Z86.010 Personal history of colon polyps; Z86.73 Personal history of transient ischemic attack (TIA), and cerebral infarction without residual deficits